=== PATIENT | female | born 1995 | race Caucasian/White ===

== ENCOUNTER 2018-05-05 09:36 | Emergency (ER) | payer OTHER | END 2018-05-05 11:10 | disposition home or self-care (01) | LOC: FTE 09:36 | DX: M79.645 Pain in left finger(s) (principal) | CPT/HCPCS: 73140; 99283-25 ==

== ENCOUNTER 2018-07-27 07:30 | Emergency (ER) | payer OTHER | END 2018-07-27 08:06 | disposition home or self-care (01) | LOC: FTE 07:30 | DX: M79.645 Pain in left finger(s) (principal) | CPT/HCPCS: 99283; Z7502 ==

== ENCOUNTER 2018-09-07 07:52 | Emergency (ER) | payer OTHER ==
[2018-09-07] MEDS: ONDANSETRON (ODT) 4 MG TAB ODT (09:02)
[2018-09-07] MEDS: KETOROLAC 30 MG INJ IM (09:03)
[2018-09-07 09:06] LABS: ADD MAN DIFF? NO
[2018-09-07 09:08] LABS: WHITE BLOOD COUNT 7.5 10^3/ul (4.8-10.8)
[2018-09-07 09:08] LABS: BASOPHILS % 0.1 % (0.0-2.0); EOSINOPHILS % 0.1 % (0.0-7.0); HEMATOCRIT 34.6 % (37.0-47.0); LYMPHOCYTES # 1.1 10^3/ul (0.8-2.9); LYMPHOCYTES % 14.3 % (18.0-55.0); MEAN CORPUSCULAR HEMOGLOBIN 23.9 pg (29.0-33.0); MEAN CORPUSCULAR HGB CONC 31.8 g/dl (32.0-37.0); MEAN CORPUSCULAR VOLUME 75.2 fl (72.0-104.0); MEAN PLATELET VOLUME 10.5 fl (7.4-10.4); MONOCYTE # 0.4 10^3/ul (0.3-0.9); MONOCYTES % 5.5 % (0.0-13.0); NEUTROPHILS % 79.7 % (30.0-74.0); PLATELET COUNT 234 10^3/UL (140-415); RED CELL DISTRIBUTION WIDTH 16.8 % (11.5-14.5)
== END 2018-09-07 09:32 | disposition home or self-care (01) ==
LOC: FTE 09:32
DX: J01.10 Acute frontal sinusitis, unspecified (principal); R11.2 Nausea with vomiting, unspecified
CPT/HCPCS: 81025; 82962; 85025; 96372; 99284-25